=== PATIENT | female | born 1965 | race African-American/Black ===

== ENCOUNTER 2019-02-23 16:16 | Emergency (ER) | payer OTHER ==
[2019-02-23 16:21] VITALS: BP 128/70; PULSE 72; TEMP 98.2; BMI 45.1
[2019-02-23] MEDS ORDERED: ERYTHROMYCIN 0.5% OPHTHALMIC OINTMENT 3.5 GM TUBE OD ONE (16:22)
[2019-02-23] MEDS ORDERED: TETRACAINE 0.5% HCL 0.6ML DROPPER.BOTTLE OD ONE (16:24)
[2019-02-23] MEDS ORDERED: FLUORESCEIN NA 1 EA STRIP OD ONE (16:24)
--- NOTE | 2019-02-23 16:24 | PDOC ---
Documentation entered by Enmanuel Chanel SCRIBE, acting as scribe for Thanh White MD. Thanh White MD: This documentation has been prepared by the Darío murray Nirvannie, SCRIBE, under my direction and personally reviewed by me in its entirety. I confirm that the documentation accurately reflects all work, treatment, procedures, and medical decision making performed by me. History of Present Illness - General Chief Complaint: Eye Problem Stated Complaint: EYE REDNESS Time Seen by Provider: 02/23/19 16:19 History Source: Patient Exam Limitations: No Limitations - History of Present Illness Initial Comments: 02/23/19 16:43 CC: Right eye HPI: The patient is a 54 year old female, with no significant past medical history, who presents to the emergency department with, right eye redness, irritation, and pain. As per patient, approximately a week ago she felt as if a hair went into her eye onsetting her symptoms. She notes the symptoms persisted, prompting her arrival to the ED. She denies recent fevers, chills, headache or dizziness. She denies recent nausea, vomit, diarrhea or constipation. She denies recent dysuria, frequency, urgency or hematuria. She denies recent chest pain or shortness of breath. Allergies: Chloroquine. Past surgical history: None reported. Social history: Nonsmoker. Denies EtOH use and recreational drug use. Past History - Past Medical History Allergies/Adverse Reactions: Allergies Allergy/AdvReac Type Severity Reaction Status Date / Time chloroquine Allergy Verified 02/23/19 16:39 CLOROQUIN Allergy Uncoded 02/23/19 16:39 Home Medications: Ambulatory Orders Erythromycin 0.5% Eye Ointment [Erythromycin 0.5% Eye Ointment -] 1 applic OD QID 5 Days #1 tube 02/23/19 Anemia: Yes COPD: No - Surgical History Abdominal Surgery: Yes (FIBROIDS REMOVED.) Appendectomy: Yes - Suicide/Smoking/Psychosocial Hx Smoking History: Never smoked Hx Alcohol Use: No Drug/Substance Use Hx: No Review of Systems - Review of Systems Able to Perform ROS?: Yes Comments:: 02/23/19 16:43 ROS: A complete review of 10 out of 10 review of systems is taken and is negative apart from what is previously mentioned below and in the HPI. *Physical Exam - Vital Signs Last Vital Signs Temp Pulse Resp BP Pulse Ox 98.2 F 72 18 128/70 97 02/23/19 16:17 02/23/19 16:17 02/23/19 16:17 02/23/19 16:17 02/23/19 16:17 - Physical Exam Comments: 02/23/19 16:43 Exam: Vitals: Triage Vital signs reviewed General Appearance: no acute distress, well nourished well developed, Head: Atraumatic, normocephalic Eyes: +Slight corneal abrasion to the medial aspect of the right cornea. Pupils equal reactive round, extraocular movement intact Neuro: AOX3; Cranial Nerves 2-12 grossly intact Psych: normal mood, normal affect Medical Decision Making - Medical Decision Making 02/23/19 16:44 54 year old female, with no significant past medical history, who presents to the emergency department with, right eye redness, irritation, and pain. Plan is to: Turk lamp eye exam Erythromycin (optho) Dispo Ophthalmology follow-up Very slight corneal abrasion noted patient is a noncontact lens user Vital treat with erythromycin ointment patient will follow up with ophthalmology. Findings, need for follow-up and strict return instructions discussed patient. *DC/Admit/Observation/Transfer Diagnosis at time of Disposition: Corneal abrasion Qualifiers: Encounter type: initial encounter Laterality: right Qualified Code(s): S05.01XA - Injury of conjunctiva and corneal abrasion without foreign body, right eye, initial encounter - Discharge Dispostion Disposition: HOME Condition at time of disposition: Stable Decision to Admit order: No - Prescriptions Prescriptions: Erythromycin 0.5% Eye Ointment [Erythromycin 0.5% Eye Ointment -] 1 applic OD QID 5 Days #1 tube - Referrals Referrals: Abbey Lu MD [Staff Physician] - - Patient Instructions Printed Discharge Instructions: Corneal Abrasion Additional Instructions: Follow-up with wooden boat builder recommended in referral or your wooden boat builder within 1 week. Use the ointment 4 times a day for the next 5 days. Return to ED for any fever puss changes in vision or for any concerns. - Post Discharge Activity
== END 2019-02-23 16:42 | disposition home or self-care (01) ==
LOC: FER 16:16
DX: S05.01XA Injury of conjunctiva and corneal abrasion without foreign body, right eye, initial encounter (principal); X58.XXXA Exposure to other specified factors, initial encounter; Y93.89 Activity, other specified; Y92.89 Other specified places as the place of occurrence of the external cause; Y99.8 Other external cause status
CPT/HCPCS: 99281-25